=== PATIENT | female | born 1975 | race Caucasian/White ===

== ENCOUNTER 2019-12-31 20:32 | Emergency (ER) | payer SELFPAY ==
--- NOTE | 2019-12-31 21:31 | RAD ---
4 views right knee: 12/31/2019 COMPARISON: None HISTORY: Pain FINDINGS: No fracture or dislocation. No radiopaque foreign body or subcutaneous gas. IMPRESSION: No acute findings.
--- NOTE | 2019-12-31 22:10 | ULT ---
Right lower extremity venous Doppler ultrasound 12/31/2019 COMPARISON: None HISTORY: Pain, assess for DVT TECHNIQUE: Multiplanar grayscale sonographic imaging venous structures right lower extremity obtained with color flow and spectral analysis FINDINGS: Right common femoral vein, greater saphenous vein, profunda femoral vein, femoral vein, pop liteal vein, and posterior tibial vein are patent. Normal blood flow, augmentation, and compression within the deep venous system. No evidence for DVT. In the right lateral knee/upper calf region, in the area of pain, there is a complex fluid collection measuring 3.6 x 3.2 x 0.5 cm suggesting small volume fluid deep to the subcutaneous fat, etiology uncertain. IMPRESSION: No evidence for deep venous thrombosis of the right lower extremity. Small fluid collecti on as above. Infected fluid or the sequela of trauma are possibilities.
== END 2019-12-31 22:22 | disposition short-term general hospital (02) ==
LOC: ERS 20:32
DX: M25.561 Pain in right knee (principal); F17.210 Nicotine dependence, cigarettes, uncomplicated